=== PATIENT | female | born 1950 | race Caucasian/White ===

== ENCOUNTER 2019-05-08 21:09 | Emergency (ER) | payer OTHER ==
[~2019-05-08] VITALS: Ht 167.6 cm; Wt 104.3 kg
[2019-05-08 21:40] VITALS: BP 151/101
[2019-05-08] MEDS ORDERED: FLUORESCEIN SODIUM OPHTH 1 EA STRIP OP ONE (22:00)
[2019-05-08] MEDS ORDERED: TETRACAINE HCL 0.5% OPHTALMIC 15 ML BOTTLE OP ONE (22:00)
[2019-05-08] MEDS ORDERED: FLUORESCEIN SODIUM OPHTH 1 EA STRIP ONE (22:21)
[2019-05-08] MEDS ORDERED: ACETAMINOPHEN ES 500 MG TABLET PO ONE (22:51)
[2019-05-08] MEDS ORDERED: ACETAMINOPHEN ES 500 MG TABLET ONE (22:51)
== END 2019-05-08 22:56 | disposition home or self-care (01) ==
LOC: ER 21:14
DX: S05.02XA Injury of conjunctiva and corneal abrasion without foreign body, left eye, initial encounter (principal); Z60.2 Problems related to living alone; W22.8XXA Striking against or struck by other objects, initial encounter; Y93.89 Activity, other specified; Y92.89 Other specified places as the place of occurrence of the external cause; Y99.8 Other external cause status